=== PATIENT | female | born 1975 | race Caucasian/White ===

== ENCOUNTER 2025-02-19 13:55 | Emergency (ER) | payer BC, SELFPAY ==
--- OUTSIDE RECORDS SUMMARY | 2025-02-15 12:45 | XMS_ITS | Encounter Summary ---
Author Organization [facility] Address [address] [place] [id number] Care Team Providers Care Fish And Wildlife Technician Name Role Phone Unavailable Primary Care Provider Unavailabl e Reason for Visit * Reason Onset Date Comments PHONE INTAKE REVIEW 02/15/2025 * Appointment Request (Routine) - Authorized Specialty Diagnoses / Procedures Referred By Contact Referred To Contact Gastroenterology and Hepatology Referral ID Status Reason Start Date Expiration Date V isits Requested Visits Authorized [id number] Authorized 02/14/2025 05/17/2026 1 1 Encounter Details Date Type Department Care Team (Latest Contact Info) Description 02/15/2025 12:45 PM CDT Clinical Communication Virtual Review in [place], [place] [address] [place] [address] PHONE INTAKE REVIEW Social History Tobacco Use Types Packs/Day Years Used Date Smoking Tobacco: Never Smokeless Tobacco: Never Alcohol Use Standard Drinks/Week Comments Never 0 (1 standard drink = 0.6 oz pur e alcohol) Hunger Vital Sign Answer Date Recorded Within the past 12 months, y ou worried that your food would run out before you got the money to buy more. Never true 02/15/20 25 Within the past 12 months, t he food you bought just didn't last and you didn't have money to get more. Never true 02/14/2025 PRAPARE - Transportation Answer Date Re corded In the past 12 months, has l ack of transportation kept you from medical appointments or from getting medications? No 10/0 05/2024 In the past 12 months, has l ack of transportation kept you from meetings, work, or from getting things needed for daily living? No 02/14/2025 [facility] Utilities Answer Date Recorded In the past 12 months has th e electric, gas, oil, or water company threatened to shut off services in your home? No 02/14/2025 Housing Stability Answer Date Recorded What is your living situation today? I have a [facility] place to live 02/14/2025 Comments Unknown Sex and Gender Information Value Date Recorded Sex Assigned at Female 02/14/2025 3:05 PM CDT Legal Sex Female 2:13 PM CDT Gender Identity Female 02/14/2025 3:05 PM CDT Sexual Orientation Choose not to disclose 2024 3:05 PM CDT documented as of this encounter Miscellaneous Notes * Addendum Note - Claudia Garcia - 02/15/2025 12:57 PM CDTAddended by: CLAUDIA GARCIA on: 02/15/2025 12:57 PM Modules accepted: Orders documented in this encounter Plan of Treatment Not on file documented as of this encounter Visit Diagnoses Not on filedocumented in this encounter
--- OUTSIDE RECORDS SUMMARY | 2025-02-19 10:00 | XMS_ITS | Encounter Summary ---
Author Organization [facility] Address [address] [place] [address] Care Team Providers Care Application Penetration Tester Name Role Phone Unavailable Primary Care Provider Unavailabl e Reason for Visit * Appointment Request (Routine) - Authorized Specialty Diagnoses / Procedures Referred By Contact Referred To Contact Gastroenterology and Hepatology Diagnoses Mass Epigastric Abbie Quinonez D.O. [address] [place] [address] Phone: tel: fax: Referral ID Status Reason Start Date Expiration Date V isits Requested Visits Authorized [id number] Authorized 02/14/2025 05/17/2026 2 2 Encounter Details Date Type Department Care Team (Late st Contact Info) Description 02/19/2025 10:00 AM CDT Telemedicine Division of Gastroenterology in [place], [place] [address] [place] [address] Arrived Social History Tobacco Use Types Packs/Day Years [...] medical appointments or from getting medications? No 05/2024 In the past 12 months, has l ack of transportation kept you from meetings, work, or from getting things needed for daily living? No 02/14/2025 [facility] Utilities Answer Date Recorded In the past 12 months has e electric, gas, oil, or water company threatened to shut off services in your home? No 02/14/2025 Housing Stability Answer Date Recorded What is your living situation today? I have a [facility] place to live 02/14/2025 Comments Unknown Sex and Gender Information Value Date Recorded Sex Assigned at Female 02/14/2025 3:05 PM CDT Legal Sex Female 2:13 PM CDT Gender Identity Female 02/14/2025 3:05 PM CDT Sexual Orientation Choose not to disclose 2024 3:05 PM CDT documented as of this encounter Plan of Treatment Not on file documented as of this encounter Visit Diagnoses Not on filedocumented in this encounter Care Teams Application Penetration Tester Relationship Specialty Start Date End Date WENDI Flores External Primary Care Physician 02/19/25 documented as of this encounter
--- OUTSIDE RECORDS SUMMARY | 2025-02-19 13:58 | XMS_ITS | Clinical Summary ---
Author Organization [facility] Address [address] [place] [address] Care Team Providers Care Spine Specialist Name Role Phone Unavailable Primary Care Provider Unavailabl e Source Comments Patient records contain information from all sites at [facility]. For routine questions regarding patient records, call [phone] during business hours, M-F 8:00 AM - 5:00 PM Central Time. Record requests for emergency care only can be directed to [phone] at any time.[facility] Allergies Active Allergy Reactions Criticality Noted Date Comments Ciprofloxacin Palpitations 04/05/2024 [place] uneasy / anxious, heart rate felt irregular by patient reports Medications cyclobenzaprine (FlexeriL) 10 mg tablet Take 10 mg by mouth 3 (three) times a day as needed. 05/08/2024 Active LORazepam (Ativan) 1 mg tablet Take 0.5-1 mg by mouth every 6 (six) hours as needed. 02/14/2025 Active naproxen sodium 500 mg tablet, ER multiphase 24 hr Take 500 mg by mouth at bedtime as needed. 07/06/2024 Active Encounters Date Type Department Care Team Description 02/19/2025 10:00 AM CDT Telemedicine Division of Gastroenterology in [place], [place] [address] [place] [address] Arrived 02/15/2025 12:45 PM CDT Clinical Communication Virtual Review in [place], [place] [address] [place] [address] PHONE INTAKE REVIEW 02/14/2025 Clinical Communication Division of Gastroenterology in [place], [place] [address] [place] [address] Prescheduling, Provider Previsit Preparation; Esophageal; [facility] - Outside Materials from Last 3 Months Social History Tobacco Use Types Packs/Day Years [...] things needed for daily living? No 02/14/2025 [facility] Utilities Answer Date Recorded In the past 12 months has e electric, gas, oil, or water company threatened to shut off services in your home? No 02/14/2025 Housing Stability Answer Date Recorded What is your living situation today? I have a [facility] place to live 02/14/2025 Comments Unknown Sex and Gender Information Value Date Recorded Sex Assigned at Female 02/14/2025 3:05 PM CDT Legal Sex Female 2:13 PM CDT Gender Identity Female 02/14/2025 3:05 PM CDT Sexual Orientation Choose not to disclose 2024 3:05 PM CDT Plan of Treatment Health Maintenance Due Date Last Done Comments CT Colonography 1976 Cervical/Vaginal Cancer Screening 1976 Cologuard 1976 Colonoscopy 1976 Colorectal Cancer Screening 1976 FIT 1976 Hepatitis C Screening 1976 Lipid (Cholesterol) Screening 1976 DTaP,Tdap,and Td Vaccines (1 - Tdap) 08/12/1995 Hepatitis B Vaccines (1 of 3 - 19+ 3-dose series) 08/12/1995 Depression Screening (Annual PHQ-2) 05/17/2024 COVID-19 Vaccine (1 - 2024-2 6 season) 2025 Influenza Vaccine (#1) 2025 Mammogram 04/26/2025 04/26/2024 Fasting Glucose for Diabetes Screening 02/08/2028 02/07/2025, 04/05/2024 IPV Vaccines Aged Out No longer eligi ble based on patient's age to complete this topic Pneumococcal vaccine (0-49 years) Aged Out No longer eligible b ased on patient's age to complete this topic Procedures Procedure Name Priority Date/Time Associated Diagnosis Comments OUTSIDE CT BODY Routine 02/12/2025 12:00 AM CDT from Last 3 Months Results * CT Abdomen Pelvis W-Outside CT Body (02/12/2025 12:00 AM CDT) Narrative [facility] - 02/19/2025 10:48 AM CDT This order has been created and auto-finalized to support the import of outside images. If available, original interpretation can be found on the Media Tab in Chart Review, in Document Viewer, as an image in InfinityView or as an Addendum. If a re-interpretation or overread is required please follow defined workflow. us Provider Not In System IMG CT PROCEDURES Final R esult IIIA NA from Last 3 Months Insurance [facility] [place] [address] Care Teams Spine Specialist Relationship Specialty Start Date End Date WENDI Flores External Primary Care Physician 02/19/25
--- OUTSIDE RECORDS SUMMARY | 2025-02-19 13:58 | XMS_ITS | Clinical Summary ---
Author Organization [email or web address] [facility] Address [address] [place] [address] Care Team Providers Care Compliance Associate Name Role Phone Sanford Lepe MD Primary Care Provider [phone] Allergies Active Allergy Reactions Criticality Noted Date Comments Ciprofloxacin Palpitations 04/05/2024 [place] uneasy / anxious, heart rate felt irregular by patient reports Medications cyclobenzaprine (FLEXERIL) 10 mg tabletIndication s:Muscle spasm of back Take 1 Tablet (10 mg) by mouth 3 times daily if needed for Muscle Spasm (back spasms). 30 Tablet 3 4 Active Naproxen Sodium 500 mg [id number]: Lumbar spondylosis Take 1 Tablet (500 mg) by mouth once daily if needed (back spasms). 90 Tablet 1 5 Active LORazepam (Ativan) 1 mg tabletIndication s:Anxiety Take 0.5-1 Tablets (0.5-1 mg) by mouth every 6 hours if needed for Anxiety (panic attacks). 7 Tablet 5 Active LORazepam (Ativan) 1 mg tabletIndication s:Anxiety Take 1 Tablet (1 mg) by mouth every 6 hours if needed for Anxiety (panic attacks, flying). 10 Tablet 5 02/02/20 25 Discontinu ed(Reorder (E-cancel not sent)) LORazepam (Ativan) 1 mg tabletIndication s:Anxiety Take 1 Tablet (1 mg) by mouth every 6 hours if needed for Anxiety (panic attacks, flying). 10 Tablet 5 10/01/20 25 Discontinu ed(Reorder (E-cancel not sent)) Active Problems Problem Noted Date Diagnosed Date Cervical cancer screening 04/17/2024 Overview (04/17/2024): 03/2024 NIL/HPV negative Plan: HPV based testing in 5 years Phobia, flying 04/05/2024 Overview (07/06/2024): Discussed 15 tablets for a 3 month period of time is agreed upon by Ramy Lepe MD signed electronically .................... 07/06/2024 Resolved Problems Problem Noted Date Diagnosed Date Resolved Date Alcohol dependence in remission 04/05/2024 02/07/2025 Overview (04/05/2024): Quit in 2011. Sporadically attends AA. Has friends who are recovering alcoholics who are supportive. Encounters Date Type Department Care Team Description 02/19/2025 Nurse Triage [address] [address] Abbie Quinonez, Pain In Side (Gastric pain) 02/16/[address] [address] Sanford Lepe MD IMAGING 02/14/[address] [address] Abbie Quinonez, DO Results 02/12/2025 8:00 AM CDT Ancillary Procedure [address] [address] 02/12/[address] [address] Abbie Quinonez, Results 02/12/2025 Travel 02/07/2025 7:30 AM CDT Office Visit [address] [address] Abbie Quinonez, Consult (Endrometroma ) 02/07/2025 Travel 02/01/2025 Refill [facility] [address] [place] [address] Sanford Lepe MD Refill Request (LORazepam (Ativan) 1 mg tablet /) from Last 3 Months Family History Medical History Relation Name Comments Cancer-breast No Family History is adopte d, but has a bit of information and nothing for breast cancer appears Relation Name Status Comments Father Alive Mother Alive Social History Tobacco Use Types Packs/Day Years Used Date Smoking Tobacco: Former Cigarettes Q uit: 2008 Smokeless Tobacco: Never Tobacco Cessation:Counseling Given: Yes Alcohol Use Standard Drinks/Week Comments Not Currently 0 (1 standard drink = 0.6 oz pur e alcohol) quit drinking 2011 Social Connections Answer Date Recorded Do you often feel lonely or isolated from those around you? 0 02/07/2025 Financial Resource Strain Answer Date R ecorded Difficulty of Paying Living Expenses 3 02/07/2025 Difficulty of Paying Living Expenses Not on file 02/07/2025 Food Insecurity Answer Date Recorded Do you worry your food will run out before you are able to buy more? 1 02/07/2025 Transportation Needs Answer Date Record ed Does lack of transportation keep you from medica l appointments? 1 02/07/2025 Does lack of transportation keep you from work, meetings or getting things that you need? 1 02/07/2025 Housing Stability Answer Date Recorded What is your housing situation today? 1 02/07/2025 Utilities Answer Date Recorded Do you have trouble paying f or utilities (for example, heat, electricity, water, phone)? 1 02/07/2025 Comments No Sex and Gender Information Value Date Recorded Sex Assigned at Not on file Legal Sex Female 10:22 AM CDT Gender Identity Not on file Sexual Orientation Not on file Obstetrics History Last Filed Vital Signs Vital Sign Reading Time Taken Comments Blood Pressure 122/76 02/07/2025 7:35 AM CDT Pulse 71 02/07/2025 7:35 AM CDT Temperature 37.2 C (98.9 F) 04/05/2024 2:26 PM SEO ENGINEER Respiratory Rate - - Oxygen Saturation 100% 02/07/2025 7:35 AM CDT Inhaled Oxygen Concentration - - Weight 82.4 kg (181 lb 9.6 oz) 02/07/2025 7:35 A M CDT Height 160.3 cm (5' 3.11) 04/05/2024 2:25 PM CS T Body Mass Index 32.06 04/05/2024 2:25 PM SEO ENGINEER Plan of Treatment Upcoming Encounters Date Type Department Care Team (Late st Contact Info) Description 02/21/2025 1:10 PM CDT Office Visit [facility] [address] [place] [address] Abbie Quinonez DO [address] [place] [address] Health Maintenance Due Date Last Done Comments Tetanus booster 08/12/1987 Depression screening for age 12+ 1988 Hepatitis B series for 19+ ( 1 of 3 - 19+ 3-dose series) 08/12/1995 Pneumococcal series for age 6-49 (1 of 2 - PCV) 08/12/1995 Colonoscopy through age 75 2021 Lipids for age 45-75 2021 COVID-19 vaccine series ( season) 2025 Influenza Vaccine (#1) 2025 BMI (ht and wt on same day) for age 18+ 04/05/2025 04/05/2024 HIV for age 15-65 04/05/2025 Postponed from 08/12/1991 (Patient discretion) Hepatitis C screening for ag e 18-79 04/05/2025 Postponed from 08/11 (Patient discretion) Mammogram for age 45-75 04/26/2025 04/26/2024 Pap test for age 21-65 04/05/2029 04/05/2024 RSV vaccine for adults or (1 - 1-dose 75+ series) 08/12/2051 Procedures Procedure Name Priority Date/Time Associated Diagnosis Comments CT ABDOMEN PELVIS W Routine 02/12/2025 8 :36 AM CDT Epigastric mass LIPASE Routine 02/07/2025 7:56 AM CDT Epigastric mass COMP METABOLIC PANEL Routine 02/07/2025 7:56 AM CDT Epigastric mass CBC W PLT NO DIFF Routine 02/07/2025 7:5 6 AM CDT Epigastric mass XR MAMMO ANGEL BILAT SCREEN Routine 04/26/2024 8:50 AM SEO ENGINEER Visit for screening mammogram REGIONAL EDUCATION MANAGER THIN PREP PAP AND HPV DNA - AGE 25 AND OVER ([facility]) Routine 04/05/2024 3:55 PM SEO ENGINEER Screening for cervical cancer from Last 3 Months or Most Recently Relevant to Health Maintenance Results * CT ABDOMEN PELVIS W (02/12/2025 8:36 AM CDT) Anatomical Region Laterality Modality Abdomen, Pelvis, AORTA, LIVER, SPLEEN Computed Tomography 02/13/2025 2:38 PM CDT Narrative 02/13/2025 2:38 PM CDT For Patients: As a result of the Cures Act, medical imaging exams and procedure reports are released immediately into your electronic medical record. You may view this report before your referring provider. If you have questions, please contact your health care provider. INDICATION : Epigastric mass. TECHNIQUE : CT scan abdomen pelvis 100 cc Omnipaque IV. FINDINGS: Abdominal wall: 4.3 x 2.4 cm soft tissue mass in the midline moderate enhancement. 1 cm cephalad to the umbilicus. There is a small underlying subcentimeter anterior properitoneal nodule on image 82. The mass has infiltrative spiculated irregular margins. Lung bases: Clear. Liver spleen adrenal glands and pancreas: Unremarkable. Adrenal glands and kidneys: Unremarkable. GI tract: Unremarkable. Lymph nodes: no suspicious adenopathy. Pelvis: urinary bladder, uterus and adnexal regions are unremarkable with no free fluid. Skeletal: No suspicious lesions. Discogenic narrowing at L5-S1. IMPRESSION : 1. Abnormal supraumbilical epigastric abdominal wall mass also with a small nodule probably in the properitoneal fat. 2. Lesion has moderate enhancement. The irregular margins are concerning for a neoplastic process. Differential could include aggressive fibromatosis or desmoid like lesion, sarcoma, or metastasis. Endometriosis may also present as an abdominal wall mass. This may be slightly less likely in this circumstance given the patient`s slightly older age and endometriomas the abdominal wall typically have a somewhat more bland appearance. 3. Suggest a surgical consult and tissue sampling. 4. No signs of any other distant metastatic lesion. The solid abdominal organs are unremarkable. Please note that all CT scans at this facility use dose modulation, iterative reconstruction, and/or weight-based dosing when appropriate to reduce radiation dose to as low as reasonably achievable. Dictated by Angelo Jackson MD @ 02/13/2025 2:38:49 PM (Electronically Signed) Procedure Note Angelo Jackson MD - 02/13/2025 For Patients: As a result of the Century Cures Act, medical imagingexams and procedure reports are released immediately into your electronicmedical record. You may view this report before your referring provider.If you have questions, please contact your health care provider. INDICATION : Epigastric mass. TECHNIQUE : CT scan abdomen pelvis 100 cc Omnipaque IV. FINDINGS: Abdominal wall: 4.3 x 2.4 cm soft tissue mass in the midline moderate enhancement. 1 cmcephalad to the umbilicus. There is a small underlying subcentimeteranterior properitoneal nodule on image 82. The mass has infiltrative spiculated irregular margins. Lung bases: Clear. Liver spleen adrenal glands and pancreas: Unremarkable. Adrenal glands and kidneys: Unremarkable. GI tract: Unremarkable. Lymph nodes: no suspicious adenopathy. Pelvis: urinary bladder, uterus and adnexal regions are unremarkable withno free fluid. Skeletal: No suspicious lesions. Discogenic narrowing at L5-S1. IMPRESSION : 1. Abnormal supraumbilical epigastric abdominal wall mass also with asmall nodule probably in the properitoneal fat. 2. Lesion has moderate enhancement. The irregular margins are concerningfor a neoplastic process. Differential could include aggressivefibromatosis or desmoid like lesion, sarcoma, or metastasis. Endometriosismay also present as an abdominal wall mass. This may be slightly lesslikely in this circumstance given the patient`s slightly older age andendometriomas the abdominal wall typically have a somewhat more blandappearance. 3. Suggest a surgical consult and tissue sampling. 4. No signs of any other distant metastatic lesion. The solid abdominalorgans are unremarkable. Please note that all CT scans at this facility use dose modulation,iterative reconstruction, and/or weight-based dosing when appropriate toreduce radiation dose to as low as reasonably achievable. Dictated by Angelo Jackson MD @ 02/13/2025 2:38:49 PM (Electronically Signed) Abbie Quinonez DO CT Final Resu lt * (ABNORMAL) CBC W PLT NO DIFF (02/07/2025 7:56 AM CDT) WHITE BLOOD CELL COUNT 8.8 3.8 - 10.8 Thousand/ uL 02/08/2025 6:11 AM CDT [facility] RED BLOOD CELL COUNT 5.07 3.80 - 5.10 Million/u L 02/08/2025 6:11 AM CDT [facility] HEMOGLOBIN 15.3 11.7 - 15.5 g/dL 02/08/2025 6:11 AM CDT [facility] HEMATOCRIT 45.6(H) 35.0 - 45.0 % 02/08/2025 6:11 AM CDT [facility] MCV 89.9 80.0 - 100.0 fL 02/08/2025 6:11 AM CDT [facility] MCH 30.2 27.0 - 33.0 pg 02/08/2025 6:11 AM CDT [facility] MCHC 33.6 32.0 - 36.0 g/dL 02/08/2025 6:11 AM CDT [facility] Comment: For adults, a slight decrease in the calculated MCHC value (in the range of 30 to 32 g/dL) is most likely not clinically significant; however, it should be interpreted with caution in correlation with other red cell parameters and the patient's clinical condition. RDW 12.3 11.0 - 15.0 % 02/08/2025 6:11 AM CDT [facility] PLATELET COUNT 372 140 - 400 Thousand/ uL 02/08/2025 6:11 AM CDT [facility] MPV 10.2 7.5 - 12.5 fL 02/08/2025 6:11 AM CDT [facility] Blood BLOOD SPECIMEN / Unknown [facility] / Unknown 02/07/2025 7:56 AM CDT 02/07/2025 7:56 AM CDT Abbie Mari Cristiano DO HEMATOLOGY Final Resu lt Performing Organization Address City/[facility]/ZIP Co de Phone Number [facility] [address] [address], * LIPASE (02/07/2025 7:56 AM CDT) LIPASE 27 7 - 60 U/L 02/08/2025 5:26 AM CDT [facility] Blood BLOOD SPECIMEN / Unknown [facility] / Unknown 02/07/2025 7:56 AM CDT 02/07/2025 7:56 AM CDT Abbie Quinonez DO CHEMISTRY Final Resu lt Performing Organization Address [facility] Co de Phone Number [facility] [address] [address], * (ABNORMAL) COMP METABOLIC PANEL (02/07/2025 7:56 AM CDT) SODIUM 137 135 - 146 mmol/L 02/08/2025 5:26 AM CDT [facility] POTASSIUM 5.3 3.5 - 5.3 mmol/L 02/08/2025 5:26 AM CDT [facility] CHLORIDE 105 98 - 110 mmol/L 02/08/2025 5:26 AM CDT [facility] CARBON DIOXIDE 23 20 - 32 mmol/L 02/08/2025 5:26 AM CDT [facility] GLUCOSE 124(H) 65 - 99 mg/dL 02/08/2025 5:26 AM CDT [facility] Comment: Fasting reference interval For someone without known diabetes, a glucose value between 100 and 125 mg/dL is consistent with prediabetes and should be confirmed with a follow-up test. CALCIUM 9.7 8.6 - 10.2 mg/dL 02/08/2025 5:26 AM CDT [facility] CREATININE 0.90 0.50 - 0.99 mg/dL 02/08/2025 5:26 AM CDT [facility] BUN/CREATININE RATIO SEE NOTE: 6 - 22 (calc) 02/08/2025 5:26 AM CDT [facility] Comment: Not Reported: BUN and Creatinine are within reference range. EGFR 79 > OR = 60 mL/min/1. 73m2 02/08/2025 5:26 AM CDT [facility] ALBUMIN 4.5 3.6 - 5.1 g/dL 02/08/2025 5:26 AM CDT [facility] PROTEIN, TOTAL 7.3 6.1 - 8.1 g/dL 02/08/2025 5:26 AM CDT [facility] BILIRUBIN, TOTAL 0.5 0.2 - 1.2 mg/dL 02/08/2025 5:26 AM CDT [facility] ALKALINE PHOSPHATASE 42 31 - 125 U/L 02/08/2025 5:26 AM CDT [facility] ALT 14 6 - 29 U/L 02/08/2025 5:26 AM CDT [facility] AST 12 10 - 35 U/L 02/08/2025 5:26 AM CDT [facility] UREA NITROGEN (BUN) 16 7 - 25 mg/dL 02/08/2025 5:26 AM CDT [facility] GLOBULIN 2.8 1.9 - 3.7 g/dL (calc) 02/08/2025 5:26 AM CDT [facility] ALBUMIN/GLOBULI N RATIO 1.6 1.0 - 2.5 (calc) 02/08/2025 5:26 AM CDT [facility] Blood BLOOD SPECIMEN / Unknown [facility] / Unknown 02/07/2025 7:56 AM CDT 02/07/2025 7:56 AM CDT Abbie Quinonez DO CHEMISTRY Final Resu lt [facility] [address] [place] [address], * XR MAMMO ANGEL BILAT SCREEN (04/26/2024 8:50 AM SEO ENGINEER) Anatomical Region Laterality Modality BREASTS, Breast Left, Breast Right Bilateral Mammography Impressions 05/03/2024 3:05 PM SEO ENGINEER There is no radiographic evidence for malignancy. Recommend annual mammograms. MAMMOGRAM ASSESSMENT: ACR 1 Negative PATIENTS: You will also receive a letter with your examination results in an easy to read format. If you have questions about your results, please contact your referring provider. Narrative 05/03/2024 3:05 PM SEO ENGINEER For Patients: As a result of the Century Cures Act, medical imaging exams and procedure reports are released immediately into your electronic medical record. You may view this report before your referring provider. If you have questions, please contact your health care provider. XR MAMMO ANGEL BILAT SCREEN [[id number]] CLINICAL HISTORY: This is an asymptomatic 48 y.o. patient. INDICATION FOR EXAM: Mammogram Screening. TECHNIQUE: CC & MLO views were obtained. This study was evaluated with the assistance of Computer-Aided Detection. Breast Tomosynthesis was used in interpretation. COMPARISON FILM: Yes 06/23/22 [facility] 05/27/22 [facility] FINDINGS: The breasts are heterogeneously dense, which may obscure small masses. There are no dominant masses, suspicious micro calcifications or areas of architectural distortion. us Sanford Lepe MD MAMMO Final Resu lt * REGIONAL EDUCATION MANAGER THIN PREP PAP AND HPV DNA - AGE 25 AND OVER ([email or web address]) (04/05/2024 3:55 PM SEO ENGINEER) CLINICAL INFORMATION [facility] Comment:PARTIAL HYST PT HAS CX LMP [facility] Comment:NONE GIVEN PREV. PAP [facility] Comment:3 YRS PREV. BX [facility] Comment:NONE GIVEN SOURCE REGIONAL EDUCATION MANAGER [facility] Comment:CERVICAL STATEMENT OF ADEQUACY [facility] Comment: Satisfactory for evaluation. Endocervical/transformation zone component absent. INTERPRETATION/RESU LT [facility] Comment: Cytology Results: Negative for intraepithelial lesion or malignancy. COMMENT [facility] Comment: This Pap test has been evaluated with computer assisted technology. [facility] Comment: ESL, CT(ASCP) CT Screening Location: [address] [address] REVIEW BURR GRINDER [facility] Comment: ESW, CT (ASCP) CT Screening location: [address] [address] THINPREP TIS PAP ALWAYS MESSAGE [facility] Comment: EXPLANATORY NOTE: The Pap is a screening test for cervical cancer. It is not a diagnostic test and is subject to false negative and false positive results. It is most reliable when a satisfactory sample, regularly obtained, is submitted with relevant clinical findings and history, and when the Pap result is evaluated along with historic and current clinical information. HPV HIGH RISK Not Detected NOT DETECTED [facility] Comment: Not Detected High Risk HPV types (16,18,31,33,35,39,45,51,52, 56,58,59,66,68) were not detected. Other HPV types which cause anogenital lesions may be present. The significance of the other types of HPV in malignant processes has not been established. Methodology: Real Time PCR Other (Other) 04/05/2024 3:5 5 PM SEO ENGINEER 04/06/2024 9:49 AM SEO ENGINEER Sanford Lepe MD PATHOLOGY/CYTOLOGY Final R esult [facility] [address] [place] [address], [facility] [address] [place] [address] from Last 3 Months or Most Recently Relevant to Health Maintenance Insurance [facility] Care Teams Compliance Associate Relationship Specialty Start Date End Date Sanford Lepe MD Amie Maxwell [place] [phone] PCP - General Family Practice 03/03/24
--- OUTSIDE RECORDS SUMMARY | 2025-02-19 13:58 | XMS_ITS | Encounter Summary ---
Author Organization [facility] Address [address] [place] [address] Care Team Providers Care Waste Machine Tender Name Role Phone Unavailable Primary Care Provider Unavailabl e Reason for Visit * Reason Onset Date Comments Previsit Preparation 02/14/2025 Esophageal 02/14/2025 [facility] 02/14/2025 Encounter Details Date Type Department Care Team (Latest Contact Info) Description 02/14/2025 Clinical Communication Division of Gastroenterology in [place], [place] [address] [place] [address] Prescheduling, Provider Previsit Preparation; Esophageal; [facility] Social History Tobacco Use Types Packs/Day Years [...] things needed for daily living? No 02/14/2025 [facility] Utilities Answer Date Recorded In the past 12 months has e electric, gas, oil, or water company threatened to shut off services in your home? No 02/14/2025 Housing Stability Answer Date Recorded What is your living situation today? I have a [facility] place to live 02/14/2025 Comments Unknown [...] on filedocumented in this encounter Care Teams Waste Machine Tender Relationship Specialty Start Date End Date [place] External Primary Care Physician 02/19/25 documented as of this encounter
[2025-02-19 14:00] VITALS: BP 129/88; PULSE 68; RESP 22; TEMP 37.3; O2SAT 99; BMI 29.5
--- NOTE | 2025-02-19 14:05 | ED.GENADULT ---
HPI - General Adult General Date Seen: 02/19/25 Chief complaint: Abdominal Pain Stated complaint: Mass in abdomen--pain/anxiety Time Seen by Provider: 02/19/25 14:04 Discharge Plan Discharge Follow Up/Referrals: Abbie Quinonez DO [Primary Care Provider, Family Practice]
--- NOTE | 2025-02-19 14:08 | ED_ITS ---
HPI - Abdominal Pain General Date Seen: 02/19/25 <Carmen Sagastume MD - Last Filed: 02/19/25 18:32> Chief Complaint: Abdominal Pain <Carmen Sagastume MD - Last Filed: 02/19/25 18:32> Stated Complaint: Mass in abdomen--pain/anxiety <Carmen Sagastume MD - Last Filed: 02/19/25 18:32> Time Seen by Provider: 02/19/25 14:04 <Carmen Sagastume MD - Last Filed: 02/19/25 18:32> Source: patient, RN notes reviewed and old records reviewed <Carmen Sagastume MD - Last Filed: 02/19/25 18:32> Mode of arrival: ambulatory <Carmen Sagastume MD - Last Filed: 02/19/25 18:32> Limitations: no limitations <Carmen Sagastume MD - Last Filed: 02/19/25 18:32> History of Present Illness HPI narrative: Philly is a very pleasant 49-year-old female with known abdominal mass identified on a CT 1 week ago who comes to the emergency room from urgent care for evaluation regarding abdominal pain and anxiety. Philly notes that she has known about this mass in the past and had a biopsy that was reassuring. She was told to continue to monitor this and should she have increasing abdominal pain to be seen. 5-6 days prior to her CT on WednesdayFebruary 12 she began experiencing more abdominal pain. She did not have any diarrhea blood in her stool or vomiting. CT was done on Wednesday which shows a 4.3 x 2.4 soft tissue mass with spiculated irregular margins. She notes that she has an appointment at [facility] that is pending. She has already begun the intake process. She is supposed to see her primary Abbie Cristiano on WednesdayFebruary 21. Today she called [facility] and was on the phone for an hour in the hopes of refilling her Ativan prescription or receiving pain medication. Unfortunately they ended up referring her to urgent care urgent care referred her to the ER. Philly and I do talk about her pain. She denies abdominal distension, vomiting. She notes that she is extremely anxious and the Ativan has helped. She has been using 0.5 mg but occasionally has to take full mg. She notes that this is the only way that she can eat. Philly has noted some constipation likely related to Advil use. She does note that she takes omeprazole or an anti acid if she is using an NSAID. CT findings through [facility] CT scan abdomen/pelvis 02/13/2025 FINDINGS: Abdominal wall: 4.3 x 2.4 cm soft tissue mass in the midline moderate enhancement. 1 cm cephalad to the umbilicus. There is a small underlying subcentimeter anterior properitoneal nodule on image 82. The mass has infiltrative spiculated irregular margins. ? Lung bases: Clear. ? Liver spleen adrenal glands and pancreas: Unremarkable. ? Adrenal glands and kidneys: Unremarkable. ? GI tract: Unremarkable. Lymph nodes: no suspicious adenopathy. ? Pelvis: urinary bladder, uterus and adnexal regions are unremarkable with no free fluid. ? Skeletal: No suspicious lesions. Discogenic narrowing at L5-S1. ? ? IMPRESSION : 1. Abnormal supraumbilical epigastric abdominal wall mass also with a small nodule probably in the properitoneal fat. 2. Lesion has moderate enhancement. The irregular margins are concerning for a neoplastic process. Differential could include aggressive fibromatosis or desmoid like lesion, sarcoma, or metastasis. Endometriosis may also present as an abdominal wall mass. This may be slightly less likely in this circumstance given the patient`s slightly older age and endometriomas the abdominal wall typically have a somewhat more bland appearance. 3. Suggest a surgical consult and tissue sampling. 4. No signs of any other distant metastatic lesion. The solid abdominal organs are unremarkable. ? ? Please note that all CT scans at this facility use dose modulation, iterative reconstruction, and/or weight-based dosing when appropriate to reduce radiation dose to as low as reasonably achievable. ? Dictated by Angelo Jackson MD @ 02/13/2025 2:38:49 PM <Carmen Sagastume MD - Last Filed: 02/19/25 18:32> CT findings through [place] CT scan abdomen/pelvis 02/13/2025 FINDINGS: Abdominal wall: 4.3 x 2.4 cm soft tissue mass in the midline moderate enhancement. 1 cm cephalad to the umbilicus. There is a small underlying subcentimeter anterior properitoneal nodule on image 82. The mass has infiltrative spiculated irregular margins. ? Lung bases: Clear. ? Liver spleen adrenal glands and pancreas: Unremarkable. ? Adrenal glands and kidneys: Unremarkable. ? GI tract: Unremarkable. Lymph nodes: no suspicious adenopathy. ? Pelvis: urinary bladder, uterus and adnexal regions are unremarkable with no free fluid. ? Skeletal: No suspicious lesions. Discogenic narrowing at L5-S1. ? ? IMPRESSION : 1. Abnormal supraumbilical epigastric abdominal wall mass also with a small nodule probably in the properitoneal fat. 2. Lesion has moderate enhancement. The irregular margins are concerning for a neoplastic process. Differential could include aggressive fibromatosis or desmoid like lesion, sarcoma, or metastasis. Endometriosis may also present as an abdominal wall mass. This may be slightly less likely in this circumstance given the patient`s slightly older age and endometriomas the abdominal wall typically have a somewhat more bland appearance. 3. Suggest a surgical consult and tissue sampling. 4. No signs of any other distant metastatic lesion. The solid abdominal organs are unremarkable. ? ? Please note that all CT scans at this facility use dose modulation, iterative reconstruction, and/or weight-based dosing when appropriate to reduce radiation dose to as low as reasonably achievable. ? Dictated by Angelo Jackson MD @ 02/13/2025 2:38:49 PM <Jonn Chavez MD - Last Filed: 02/21/25 15:59> Related Data Home Medications: Home Medications ?Medication ?Instructions ?Recorded ?Confirmed aleeve 400 mg PO .every 8 PRN 02/1902/19/25 lorazepam 1 mg tablet PO 02/19/25 <Carmen Sagastume MD - Last Filed: 02/19/25 18:32> Allergies/Adverse Reactions: Allergies Allergy/AdvReac Type Severity Reaction Status Date / Time ciprofloxacin AdvReac Intermediate heart rate Verified 02/19/25 14:11 increase and trouble breathing <Carmen Sagastume MD - Last Filed: 02/19/25 18:32> Review of Systems Status of ROS Reports: 10 or more systems reviewed and unremarkable except as noted in History and below <Carmen Sagastume MD - Last Filed: 02/19/25 18:32> Const Denies: fever, chills or change in weight (Had initially with weight gain prior to a diagnosis) <Carmen Sagastume MD - Last Filed: 02/19/25 18:32> Eyes Denies: change in vision <Carmen Sagastume MD - Last Filed: 02/19/25 18:32> ENMT Denies: nasal congestion <Carmen Sagastume MD - Last Filed: 02/19/25 18:32> Cardio Denies: chest pain, lightheadedness or shortness of breath with exertion <Carmen Sagastume MD - Last Filed: 02/19/25 18:32> Resp Denies: shortness of breath or cough <Carmen Sagastume MD - Last Filed: 02/19/25 18:32> GI Reports: abdominal pain and constipation; Denies: nausea or vomiting <Carmen Sagastume MD - Last Filed: 02/19/25 18:32> Denies: painful urination <Carmen Sagastume MD - Last Filed: 02/19/25 18:32> Musculo Denies: back pain <Carmen Sagastume MD - Last Filed: 02/19/25 18:32> Psych Reports: anxiety <Carmen Sagastume MD - Last Filed: 02/19/25 18:32> Exam Narrative: Exam Narrative: Alert and oriented. Occasionally tearful. Very normal under the circumstances. EOM is full face symmetrical moist mucous membranes. Heart with regular rate and rhythm and lungs are clear. Abdomen is soft. She does have some tenderness in the hypogastrium. I do not palpate mass however. No abdominal distension and bowel sounds are intact. <Carmen Sagastume MD - Last Filed: 02/19/25 18:32> Const: Vital Signs, click to edit/add: Vital Signs - 24 hr 02/19/25 14:00 Temperature 99.1 F Pulse Rate [Pulse Oximeter] 68 Respiratory Rate 22 Blood Pressure [Ri ght Upper Arm] 129/88 Pulse Oximetry 99 Oxygen Delivery Me thod Room Air <Carmen Sagastume MD - Last Filed: 02/19/25 18:32> Vital Signs, click to edit/add: Vital Signs - 24 hr 02/19/25 14:00 Temperature 99.1 F Pulse Rate [Pulse Oximeter] 68 Respiratory Rate 22 Blood Pressure [Ri ght Upper Arm] 129/88 Pulse Oximetry 99 Oxygen Delivery Me thod Room Air <Jonn Chavez MD - Last Filed: 02/21/25 15:59> Documenting provider has reviewed patient's vital signs: yes <Carmen Sagastume MD - Last Filed: 02/19/25 18:32> Course Course ED Course: I do speak with Philly about the use of Ativan for her anxiety. She is presenting today with abdominal pain but states that they pain really has not changed from a week ago. She further tells me she does not think that anything has changed inside. My question was to repeat the CT but at this time with no abdominal distension blood in vomit or stool it appears that this is a stable thing for her. I do not see evidence of an infection such as diverticulitis or colitis, no evidence of a bowel obstruction at this time. I did speak but the use of Ativan and asked her if it does give her some pain relief and she thinks that does. My concern is using Ativan with any other pain medication especially a narcotic. I do explain the should not be taken together. She understands that and agrees to our plan. At this time given vital signs exam and history I do not feel that we should pursue any further imaging or blood work. <Carmen Sagastume MD - Last Filed: 02/19/25 18:32> Vital Signs Vital signs: Initial Vital Signs Temperature 99.1 F 02/19/25 14:00 Temperature Source Temporal Artery Scan 02/19/25 14:00 Pulse Rate 68 02/19/25 14:00 Respiratory Rate 22 02/19/25 14:00 Blood Pressure 129/88 02/19/25 14:00 Blood Pressure Mean 101 02/19/25 14:00 Blood Pressure Position Sitting 02/19/25 14:00 Pulse Oximetry 99 02/19/25 14:00 Oxygen Delivery Method Room Air 02/19/25 14:00 Vital Signs Temperature 99.1 F 02/19/25 14:00 Pulse Rate 68 02/19/25 14:00 Respiratory Rate 22 02/19/25 14:00 Blood Pressure 129/88 02/19/25 14:00 Pulse Oximetry 99 02/19/25 14:00 Oxygen Delivery Method Room Air 02/19/25 14:00 Temperature 99.1 F 02/19/25 14:00 Pulse Rate 68 02/19/25 14:00 Respiratory Rate 22 02/19/25 14:00 Blood Pressure 129/88 02/19/25 14:00 Pulse Oximetry 99 02/19/25 14:00 Oxygen Delivery Method Room Air 02/19/25 14:00 <Carmen Sagastume MD - Last Filed: 02/19/25 18:32> Initial Vital Signs Temperature 99.1 F 02/19/25 14:00 Temperature Source Temporal Artery Scan 02/19/25 14:00 Pulse Rate 68 02/19/25 14:00 Respiratory Rate 22 02/19/25 14:00 Blood Pressure 129/88 02/19/25 14:00 Blood Pressure Mean 101 02/19/25 14:00 Blood Pressure Position Sitting 02/19/25 14:00 Pulse Oximetry 99 02/19/25 14:00 Oxygen Delivery Method Room Air 02/19/25 14:00 Vital Signs Temperature 99.1 F 02/19/25 14:00 Pulse Rate 68 02/19/25 14:00 Respiratory Rate 22 02/19/25 14:00 Blood Pressure 129/88 02/19/25 14:00 Pulse Oximetry 99 02/19/25 14:00 Oxygen Delivery Method Room Air 02/19/25 14:00 Temperature 99.1 F 02/19/25 14:00 Pulse Rate 68 02/19/25 14:00 Respiratory Rate 22 02/19/25 14:00 Blood Pressure 129/88 02/19/25 14:00 Pulse Oximetry 99 02/19/25 14:00 Oxygen Delivery Method Room Air 02/19/25 14:00 <Jonn Chavez MD - Last Filed: 02/21/25 15:59> MDM - Abdominal Pain MDM Narrative Medical decision making narrative: 1. Abdominal pain-if abdominal pain is severe may use [place]burn 5/3 25 1 tablet every 4-6 hours as needed for discomfort. Patient is informed that this is a highly likelihood of causing constipation so she should start a stool softener. She does understand that this is a sedating medication and not to use it with sleeping medications or a with Ativan. 2. Anxiety -Ativan 0.5-1 mg p.o. Q 8-12 hours p.r.n. anxiety. Again did explain that this is a sedating medication should not use alcohol sedating medicines or narcotic together. 3. Disposition-home at this time. Seek medical attention for worsening symptoms especially fever, vomiting, blood in stool, blood in vomit, abdominal distension or increasing pain. She feels happy with this plan. She will be following up with her primary on WednesdayFebruary 21. <Carmen Sagastume MD - Last Filed: 02/19/25 18:32> Medical Records Attestation: I reviewed the patient's medical records. <Carmen Sagastume MD - Last Filed: 02/19/25 18:32> Discharge Plan Discharge Clinical Impression: Anxiety Abdominal pain Qualifiers: Abdominal location: periumbilical Qualified Code(s): R10.33 - Periumbilical pain <Carmen Sagastume MD - Last Filed: 02/19/25 18:32> Patient Disposition: Home, Self-Care <Carmen Sagastume MD - Last Filed: 02/19/25 18:32> Condition: Unchanged <Carmen Sagastume MD - Last Filed: 02/19/25 18:32> Instructions: Abdominal Pain (ED) <Carmen Sagastume MD - Last Filed: 02/19/25 18:32> Additional Instructions: 1. Ativan 0.5-1 mg every 8-12 hours as needed for anxiety or nausea. 2. For increasing abdominal pain, Woodburn is a combination medication of Tylenol and a narcotic called hydrocodone. You may use 1 tablet every 4-6 hours as needed. Please start a stool softener as both of these medications can be very constipating. Follow-up on Wednesday as scheduled. Please return to the emergency room for worsening symptoms especially fever, vomiting, increasing abdominal size, failure to pass stool or flatus. <Carmen Sagastume MD - Last Filed: 02/19/25 18:32> Prescriptions: No Action lorazepam 1 mg tablet PO aleeve 400 mg PO .every 8 PRN <Carmen Sagastume MD - Last Filed: 02/19/25 18:32> Follow Up/Referrals: Abbie Quinonez DO [Primary Care Provider, Family Practice] <Carmen Sagastume MD - Last Filed: 02/19/25 18:32> Stand Alone Forms: [facility] Info Instructions <Carmen Sagastume MD - Last Filed: 02/19/25 18:32>
== END 2025-02-19 14:58 | disposition home or self-care (01) ==
LOC: ED 14:36
PROVIDERS: Emergency Provider Family Medicine; PCP Family Medicine
DX: R10.33 Periumbilical pain (principal); R19.00 Intra-abdominal and pelvic swelling, mass and lump, unspecified site; F41.9 Anxiety disorder, unspecified
CPT/HCPCS: 99283